=== PATIENT | female | born 1970 | race Caucasian/White ===

== ENCOUNTER → 2022-01-29 | Outpatient (CLI) | payer OTHER | LOC: M OUTALCOH 08:03 | PROVIDERS: ATTEND Psychiatry & Neurology Psychiatry | DX: Z02.89 Encounter for other administrative examinations (principal) ==

== ENCOUNTER → 2022-01-31 | Outpatient (CLI) | payer OTHER | LOC: M OUTALCOH 07:42 | PROVIDERS: ATTEND Psychiatry & Neurology Psychiatry | DX: Z02.89 Encounter for other administrative examinations (principal) ==

== ENCOUNTER 2022-02-07 10:57 | Outpatient (RCR) | payer OTHER | END 2022-02-10 | LOC: M OUTALCOH 10:57 | PROVIDERS: ATTEND Psychiatry & Neurology Psychiatry | DX: F10.20 Alcohol dependence, uncomplicated (principal); F15.20 Other stimulant dependence, uncomplicated; F17.200 Nicotine dependence, unspecified, uncomplicated ==

== ENCOUNTER 2022-04-28 23:09 | Emergency (ER) | payer OTHER ==
[~2022-04-28] VITALS: Ht 172.7 cm; Wt 67.7 kg
[2022-04-28 23:12] VITALS: BP 140/98
== END 2022-04-29 02:57 | disposition left against medical advice (07) ==
LOC: M ED 23:09
DX: Z53.21 Procedure and treatment not carried out due to patient leaving prior to being seen by health care provider (principal)

== ENCOUNTER → 2022-05-03 | Outpatient (CLI) | payer OTHER | LOC: M CLY 09:06 | PROVIDERS: ATTEND Family Medicine | DX: M25.551 Pain in right hip (principal) ==

== ENCOUNTER → 2022-05-03 | Outpatient (REF) | payer OTHER ==
[2022-05-03 11:53] LABS: HEMATOCRIT 38.4 % (36.0-47.0); HEMOGLOBIN 12.4 g/dl (12.0-15.5); MEAN CORPUSCULAR HEMOGLOBIN 33.2 pg (27.0-33.0); MEAN CORPUSCULAR HGB CONC 32.3 g/dl (32.0-36.5); MEAN CORPUSCULAR VOLUME 102.9 fl (80.0-96.0); PLATELET COUNT, AUTOMATED 239 10^3/uL (150-450); RED BLOOD COUNT 3.73 10^6/uL (4.00-5.40); WHITE BLOOD COUNT 3.5 10^3/uL (4.0-10.0)
[2022-05-03 12:46] LABS: ALT/SGPT 81 U/L (12-78); BILIRUBIN,TOTAL 0.2 MG/DL (0.2-1.0); BLOOD UREA NITROGEN 11 MG/DL (7-18); CALCIUM LEVEL 9.2 MG/DL (8.5-10.1); CARBON DIOXIDE LEVEL 27 MEQ/L (21-32); CHLORIDE LEVEL 106 MEQ/L (98-107); CREATININE FOR GFR 0.55 MG/DL (0.55-1.30); GLOMERULAR FILTRATION RATE > 60.0 (>51); GLUCOSE, FASTING 89 MG/DL (70-100); SODIUM LEVEL 139 MEQ/L (136-145); TOTAL PROTEIN 7.5 GM/DL (6.4-8.2)
[2022-05-03 13:08] LABS: VITAMIN B12 LEVEL 463 PG/ML (247-911)
[2022-05-03 13:48] LABS: HEPATITIS C VIRUS ABY INDEX < 0.0 INDEX (<0.8); HIV 1&2 SCREEN CENTAUR NEGATIVE (NEGATIVE)
[2022-05-04 08:09] LABS: FOLATE 4.7 ng/mL (>3.0)
== END ==
LOC: M SFHCPLAZ 09:01
PROVIDERS: ATTEND Family Medicine
DX: F10.20 Alcohol dependence, uncomplicated (principal); Z11.9 Encounter for screening for infectious and parasitic diseases, unspecified

== ENCOUNTER → 2022-05-17 | Outpatient (CLI) | payer OTHER | LOC: M WHC 08:24 | PROVIDERS: ATTEND Family Medicine | DX: F10.10 Alcohol abuse, uncomplicated (principal) ==

== ENCOUNTER → 2022-05-30 | Outpatient (REF) | payer OTHER | LOC: M SFHCPLAZ 13:09 | PROVIDERS: ATTEND Family Medicine | DX: Z53.9 Procedure and treatment not carried out, unspecified reason (principal) ==

== ENCOUNTER → 2022-07-05 | Outpatient (REF) | payer OTHER | LOC: M LAB REF 12:57 | PROVIDERS: ATTEND Nurse Practitioner Family | DX: R19.4 Change in bowel habit (principal); Z80.0 Family history of malignant neoplasm of digestive organs ==

== ENCOUNTER → 2022-07-11 | Outpatient (CLI) | payer OTHER ==
[~2022-07-11] MED LIST: ACAM0.05 PO; ALBU8.5H INH; CHOL100012 PO; FLUT1BLS4 INH; FOLI400T13 PO; GALZ50CA PO; LOPE1CAP5 PO; OMEP-173 PO; TAB-TAB3 PO; THIA100T22 PO; VITATAB73 PO
== END ==
LOC: M SOG 08:03
PROVIDERS: ATTEND Physician Assistant
DX: M25.531 Pain in right wrist (principal)

== ENCOUNTER → 2022-07-16 | Outpatient (CLI) | payer OTHER | LOC: M LABSMTC 10:44 | PROVIDERS: ATTEND Anesthesiology | DX: Z01.812 Encounter for preprocedural laboratory examination (principal); Z11.52 Encounter for screening for COVID-19 ==

== ENCOUNTER 2022-07-19 09:57 | Day surgery (SDC) | payer OTHER ==
[~2022-07-19] VITALS: Ht 170.2 cm; Wt 67.0 kg
[~2022-07-19 09:57] MED LIST changes: +NS 1,000 ML IV ONE
[2022-07-19] MEDS ORDERED: propofoL 200 MG/20 ML VIAL As Ordered ONE (11:39)
[2022-07-19] MEDS ORDERED: LIDOCAINE 2% 100MG/5ML SDV (FOR ANES.) As Ordered ONE (11:47)
[2022-07-19 12:26] VITALS: BP 160/73
== END 2022-07-19 12:40 | disposition home or self-care (01) ==
LOC: M OPP 09:57
PROVIDERS: ATTEND Internal Medicine Gastroenterology
DX: Z12.11 Encounter for screening for malignant neoplasm of colon (principal); K63.5 Polyp of colon; K29.50 Unspecified chronic gastritis without bleeding; K57.30 Diverticulosis of large intestine without perforation or abscess without bleeding; K64.8 Other hemorrhoids; K76.0 Fatty (change of) liver, not elsewhere classified; K21.9 Gastro-esophageal reflux disease without esophagitis; M19.90 Unspecified osteoarthritis, unspecified site; F41.9 Anxiety disorder, unspecified; F32.A Depression, unspecified; J45.909 Unspecified asthma, uncomplicated; F17.210 Nicotine dependence, cigarettes, uncomplicated; Z88.2 Allergy status to sulfonamides; Z79.899 Other long term (current) drug therapy; Z80.0 Family history of malignant neoplasm of digestive organs; Z80.3 Family history of malignant neoplasm of breast; Z80.41 Family history of malignant neoplasm of ovary

== ENCOUNTER → 2022-07-22 | Outpatient (CLI) | payer OTHER ==
[~2022-07-22] MED LIST changes: -NS 1,000 ML IV ONE
== END ==
LOC: M LABSMTC 11:01
PROVIDERS: ATTEND Anesthesiology
DX: Z01.812 Encounter for preprocedural laboratory examination (principal); Z20.822 Contact with and (suspected) exposure to COVID-19

== ENCOUNTER 2022-07-24 06:14 | Day surgery (SDC) | payer OTHER ==
[~2022-07-24] VITALS: Ht 171.4 cm; Wt 66.9 kg
[2022-07-24] MEDS ORDERED: propofoL 200 MG/20 ML VIAL As Ordered ONE (07:14)
[2022-07-24] MEDS ORDERED: MIDAZOLAM INJ 2MG/2ML VIAL As Ordered ONE (07:14)
[2022-07-24] MEDS ORDERED: ONDANSETRON 4MG 2ML VIAL As Ordered ONE (07:14)
[2022-07-24] MEDS ORDERED: fentaNYL 100 MCG/2 ML INJECTION As Ordered ONE (07:15)
[2022-07-24] MEDS ORDERED: KETOROLAC 60MG 2ML VIAL As Ordered ONE (07:16)
[2022-07-24] MEDS ORDERED: LIDOCAINE 2% 100MG/5ML SDV (FOR ANES.) As Ordered ONE (07:16)
== END 2022-07-24 12:40 | disposition home or self-care (01) ==
LOC: M SDC 06:14
PROVIDERS: ATTEND Orthopaedic Surgery Hand Surgery
DX: G56.01 Carpal tunnel syndrome, right upper limb (principal); Z53.09 Procedure and treatment not carried out because of other contraindication

== ENCOUNTER → 2022-07-31 | Outpatient (CLI) | payer OTHER | LOC: M LABSMTC 11:21 | PROVIDERS: ATTEND Anesthesiology | DX: Z01.812 Encounter for preprocedural laboratory examination (principal); Z20.822 Contact with and (suspected) exposure to COVID-19 ==

== ENCOUNTER 2022-08-05 06:08 | Day surgery (SDC) | payer OTHER ==
[~2022-08-05] VITALS: Ht 172.7 cm; Wt 68.4 kg
[2022-08-05] MEDS ORDERED: LR 1,000 ML IV SCH ×2 (06:20→08:25)
[2022-08-05] MEDS ORDERED: BUPIVACAINE HCL 0.25% 30ML VIAL As Ordered ONE (07:15)
[2022-08-05] MEDS ORDERED: BACITRACIN OINTMENT 30GM TUBE As Ordered ONE (07:15)
[2022-08-05] MEDS ORDERED: ONDANSETRON 4MG 2ML VIAL As Ordered ONE (07:45)
[2022-08-05] MEDS ORDERED: KETOROLAC 60MG 2ML VIAL As Ordered ONE ×2 (07:45→09:05)
[2022-08-05] MEDS ORDERED: METOCLOPRAMIDE INJ 10MG/2ML VIAL As Ordered ONE (07:45)
[2022-08-05] MEDS ORDERED: propofoL 200 MG/20 ML VIAL As Ordered ONE (07:45)
[2022-08-05] MEDS ORDERED: ACETAMINOPHEN 1000MG 100ML IV BAG As Ordered ONE (07:45)
[2022-08-05] MEDS ORDERED: LIDOCAINE 2% 100MG/5ML SDV (FOR ANES.) As Ordered ONE (07:45)
[2022-08-05] MEDS ORDERED: fentaNYL 100 MCG/2 ML INJECTION As Ordered ONE (07:45)
[2022-08-05] MEDS ORDERED: MIDAZOLAM INJ 2MG/2ML VIAL As Ordered ONE (07:45)
[2022-08-05] MEDS ORDERED: oxyCODONE 5MG TAB PO PRN (08:25)
[2022-08-05] MEDS ORDERED: ONDANSETRON 4MG 2ML VIAL IV PRN (08:25)
[2022-08-05 08:59] VITALS: BP 100/67
== END 2022-08-05 09:22 | disposition home or self-care (01) ==
LOC: M SDC 06:08
PROVIDERS: ATTEND Orthopaedic Surgery Hand Surgery
DX: G56.01 Carpal tunnel syndrome, right upper limb (principal); K57.92 Diverticulitis of intestine, part unspecified, without perforation or abscess without bleeding; K76.0 Fatty (change of) liver, not elsewhere classified; K21.9 Gastro-esophageal reflux disease without esophagitis; F17.210 Nicotine dependence, cigarettes, uncomplicated; F12.10 Cannabis abuse, uncomplicated; Z79.899 Other long term (current) drug therapy; F41.9 Anxiety disorder, unspecified; F32.A Depression, unspecified; Z88.2 Allergy status to sulfonamides
CPT/HCPCS: 29848; 93005; J1100; J2405

== ENCOUNTER → 2022-08-12 | Outpatient (CLI) | payer OTHER | LOC: M OUTALCOH 07:34 | PROVIDERS: ATTEND Psychiatry & Neurology Psychiatry | DX: F10.10 Alcohol abuse, uncomplicated (principal) ==

== ENCOUNTER 2022-08-23 09:59 | Outpatient (RCR) | payer OTHER | END 2022-09-10 | LOC: M OUTALCOH 09:59 | PROVIDERS: ATTEND Psychiatry & Neurology Psychiatry | DX: F15.20 Other stimulant dependence, uncomplicated (principal); F10.20 Alcohol dependence, uncomplicated; F12.10 Cannabis abuse, uncomplicated; Z72.0 Tobacco use ==

== ENCOUNTER → 2022-09-02 | Outpatient (CLI) | payer OTHER | LOC: M OUTALCOH 08:04 | PROVIDERS: ATTEND Psychiatry & Neurology Psychiatry | DX: F10.10 Alcohol abuse, uncomplicated (principal) ==

== ENCOUNTER → 2022-10-04 | Outpatient (CLI) | payer OTHER ==
[2022-10-04 17:31] LABS: APPEARANCE, URINE CLEAR (CLEAR); BACTERIA, URINE AUTO NEGATIVE (NEGATIVE); BILIRUBIN, URINE AUTO NEGATIVE (NEGATIVE); BLOOD, URINE BLOOD NEGATIVE (NEGATIVE); COLOR, URINE STRAW (YELLOW); GLUCOSE, URINE (UA) AUTO NEGATIVE (NEGATIVE); KETONE, URINE AUTO NEGATIVE (NEGATIVE); LEUKOCYTE ESTERASE, URINE AUTO 2+ (NEGATIVE); NITRITE, URINE AUTO NEGATIVE (NEGATIVE); PROTEIN, URINE AUTO NEGATIVE (NEGATIVE); RBC, URINE AUTO 1 /HPF (0-3); SPECIFIC GRAVITY URINE AUTO 1.006 (1.002-1.035); SQUAMOUS EPITHELIAL CELL UR AU 0 /HPF (0-6); UROBILINOGEN, URINE AUTO 0.2 mg/dL (0.0-2.0); WBC, URINE AUTO 14 /HPF (0-3)
[2022-10-04 17:44] LABS: HEMATOCRIT 40.2 % (36.0-47.0); HEMOGLOBIN 12.9 g/dl (12.0-15.5); MEAN CORPUSCULAR HEMOGLOBIN 31.8 pg (27.0-33.0); MEAN CORPUSCULAR HGB CONC 32.1 g/dl (32.0-36.5); PLATELET COUNT, AUTOMATED 334 10^3/uL (150-450); RED BLOOD COUNT 4.06 10^6/uL (4.00-5.40); WHITE BLOOD COUNT 7.5 10^3/uL (4.0-10.0)
[2022-10-04 18:12] LABS: BLOOD UREA NITROGEN 15 MG/DL (9-23); CALCIUM LEVEL 9.3 MG/DL (8.5-10.1); CARBON DIOXIDE LEVEL 30 MMOL/L (20-31); CHLORIDE LEVEL 103 MMOL/L (98-107); CREATININE FOR GFR 0.59 MG/DL (0.55-1.30); GLOMERULAR FILTRATION RATE > 60.0 (>51); GLUCOSE, FASTING 93 MG/DL (60-100); PHOSPHORUS LEVEL 3.7 MG/DL (2.5-4.9); POTASSIUM SERUM 4.7 MMOL/L (3.5-5.1); SODIUM LEVEL 140 MMOL/L (136-145)
[2022-10-04 19:07] LABS: HEPATITIS B SURFACE ANTIGEN NEGATIVE (NEGATIVE)
[2022-10-04 19:28] LABS: HEPATITIS C VIRUS ABY INDEX 0.1 INDEX (<0.8)
[2022-10-04 19:29] LABS: HEPATITIS B CORE ANTIBODY IGM NEGATIVE (NEGATIVE)
== END ==
LOC: M PLALAB 14:06
PROVIDERS: ATTEND Physician Assistant
DX: Z02.2 Encounter for examination for admission to residential institution (principal)

== ENCOUNTER → 2022-10-16 | Outpatient (CLI) | payer OTHER ==
[2022-10-16 13:17] LABS: BASO % 0.5 % (0.0-1.0); EOS # 0.2 10^3/uL (0.0-0.5); EOS % 4.1 % (0.0-3.0); HEMATOCRIT 41.3 % (36.0-47.0); HEMOGLOBIN 13.5 g/dl (12.0-15.5); LYMPH # 1.6 10^3/uL (1.5-5.0); LYMPH % 35.9 % (24.0-44.0); MEAN CORPUSCULAR HEMOGLOBIN 31.4 pg (27.0-33.0); MEAN CORPUSCULAR HGB CONC 32.7 g/dl (32.0-36.5); MONO # 0.4 10^3/uL (0.0-0.8); MONO % 9.5 % (2.0-8.0); NEUTROPHILS # 2.2 10^3/uL (1.5-8.5); NEUTROPHILS % 49.8 % (36.0-66.0); PLATELET COUNT, AUTOMATED 309 10^3/uL (150-450); WHITE BLOOD COUNT 4.4 10^3/uL (4.0-10.0)
[2022-10-16 13:28] LABS: INR 0.86; PROTHROMBIN TIME 11.9 SECONDS (12.5-14.5)
[2022-10-16 13:29] LABS: PARTIAL THROMBOPLASTIN TIME 30.8 SECONDS (24.8-34.2)
[2022-10-16 13:47] LABS: ALBUMIN 3.9 G/DL (3.2-5.2); ALKALINE PHOSPHATASE 107 U/L (46-116); ALT/SGPT 23 U/L (7.0-40); AST/SGOT 19 U/L (<34); BILIRUBIN,DIRECT < 0.1 MG/DL (<0.4); BILIRUBIN,TOTAL 0.3 MG/DL (0.3-1.2); BLOOD UREA NITROGEN 11 MG/DL (9-23); CALCIUM LEVEL 9.3 MG/DL (8.5-10.1); CARBON DIOXIDE LEVEL 30 MMOL/L (20-31); CHLORIDE LEVEL 104 MMOL/L (98-107); CREATININE FOR GFR 0.62 MG/DL (0.55-1.30); GLOMERULAR FILTRATION RATE > 60.0 (>51); GLUCOSE, FASTING 81 MG/DL (60-100); POTASSIUM SERUM 4.3 MMOL/L (3.5-5.1); SODIUM LEVEL 139 MMOL/L (136-145); TOTAL PROTEIN 6.7 G/DL (5.7-8.2)
== END ==
LOC: M PLALAB 11:14
PROVIDERS: ATTEND Internal Medicine Gastroenterology
DX: R11.10 Vomiting, unspecified (principal)

== ENCOUNTER → 2022-10-21 | Outpatient (CLI) | payer OTHER | LOC: M LAB 11:32 | PROVIDERS: ATTEND Internal Medicine Gastroenterology | DX: R11.10 Vomiting, unspecified (principal) ==

== ENCOUNTER → 2022-10-31 | Outpatient (CLI) | payer OTHER | LOC: M OUTALCOH 09:36 | PROVIDERS: ATTEND Psychiatry & Neurology Psychiatry | DX: F10.10 Alcohol abuse, uncomplicated (principal) ==

== ENCOUNTER 2022-11-08 12:42 | Outpatient (RCR) | payer OTHER | END 2022-11-10 | LOC: M OUTALCOH 12:42 | PROVIDERS: ATTEND Psychiatry & Neurology Psychiatry | DX: F10.20 Alcohol dependence, uncomplicated (principal); F15.20 Other stimulant dependence, uncomplicated; F12.10 Cannabis abuse, uncomplicated; Z72.0 Tobacco use ==

== ENCOUNTER → 2022-11-13 | Outpatient (CLI) | payer OTHER | LOC: M PLAIMG 09:06 → M PLALAB 09:06 | PROVIDERS: ATTEND Family Medicine | DX: M54.50 Low back pain, unspecified (principal); M51.36 Other intervertebral disc degeneration, lumbar region; M41.86 Other forms of scoliosis, lumbar region; M47.816 Spondylosis without myelopathy or radiculopathy, lumbar region ==

== ENCOUNTER 2022-11-25 11:00 | Outpatient (RCR) | payer OTHER | END 2022-12-11 | LOC: M OUTALCOH 11:00 | PROVIDERS: ATTEND Psychiatry & Neurology Psychiatry | DX: F10.20 Alcohol dependence, uncomplicated (principal); F15.20 Other stimulant dependence, uncomplicated; F12.10 Cannabis abuse, uncomplicated; Z72.0 Tobacco use ==

== ENCOUNTER 2023-01-02 09:53 | Outpatient (RCR) | payer OTHER | END 2023-01-10 | LOC: M OUTALCOH 09:53 | PROVIDERS: ATTEND Psychiatry & Neurology Psychiatry | DX: F10.20 Alcohol dependence, uncomplicated (principal); F15.20 Other stimulant dependence, uncomplicated; F12.10 Cannabis abuse, uncomplicated; Z72.0 Tobacco use ==

== ENCOUNTER 2023-02-06 09:00 | Outpatient (RCR) | payer OTHER | END 2023-02-10 | LOC: M OUTALCOH 09:00 | PROVIDERS: ATTEND Psychiatry & Neurology Psychiatry | DX: F10.20 Alcohol dependence, uncomplicated (principal); F15.20 Other stimulant dependence, uncomplicated; Z72.0 Tobacco use; F12.10 Cannabis abuse, uncomplicated ==

== ENCOUNTER → 2023-03-13 | Outpatient (RCR) | payer OTHER | LOC: M OUTALCOH 02-13 12:35 | PROVIDERS: ATTEND Psychiatry & Neurology Psychiatry | DX: F10.20 Alcohol dependence, uncomplicated (principal); F15.20 Other stimulant dependence, uncomplicated; F12.10 Cannabis abuse, uncomplicated; Z72.0 Tobacco use ==

== ENCOUNTER 2023-06-10 10:00 | Outpatient (RCR) | payer OTHER | END 2023-06-12 | LOC: M OUTALCOH 10:00 | PROVIDERS: ATTEND Psychiatry & Neurology Psychiatry | DX: F10.20 Alcohol dependence, uncomplicated (principal); F15.20 Other stimulant dependence, uncomplicated; F12.10 Cannabis abuse, uncomplicated; Z72.0 Tobacco use ==

== ENCOUNTER → 2023-06-25 | Outpatient (REF) | LOC: M PLAIMG 14:33 | PROVIDERS: ATTEND Internal Medicine | DX: R52 Pain, unspecified (principal) ==

== ENCOUNTER 2023-07-01 09:59 | Outpatient (RCR) | payer OTHER | END 2023-07-13 | LOC: M OUTALCOH 09:59 | PROVIDERS: ATTEND Psychiatry & Neurology Psychiatry | DX: F10.20 Alcohol dependence, uncomplicated (principal); F15.20 Other stimulant dependence, uncomplicated; F12.10 Cannabis abuse, uncomplicated; Z72.0 Tobacco use ==

== ENCOUNTER → 2023-07-01 | Outpatient (CLI) | payer OTHER ==
[2023-07-01 13:11] LABS: HEMOGLOBIN 13.1 g/dl (12.0-15.5); MEAN CORPUSCULAR HEMOGLOBIN 31.5 pg (27.0-33.0); MEAN CORPUSCULAR HGB CONC 32.8 g/dl (32.0-36.5); MEAN CORPUSCULAR VOLUME 96.2 fl (80.0-96.0); PLATELET COUNT, AUTOMATED 314 10^3/uL (150-450); RED BLOOD COUNT 4.16 10^6/uL (4.00-5.40); WHITE BLOOD COUNT 3.5 10^3/uL (4.0-10.0)
[2023-07-01 13:24] LABS: INR 0.92; PROTHROMBIN TIME 12.1 SECONDS (12.5-14.5)
[2023-07-01 13:42] LABS: ALBUMIN 3.9 G/DL (3.2-5.2); ALKALINE PHOSPHATASE 92 U/L (46-116); ALT/SGPT 13 U/L (7.0-40); AST/SGOT 16 U/L (<34); BILIRUBIN,TOTAL 0.8 MG/DL (0.3-1.2); BLOOD UREA NITROGEN 14 MG/DL (9-23); CALCIUM LEVEL 9.6 MG/DL (8.5-10.1); CARBON DIOXIDE LEVEL 28 MMOL/L (20-31); CHLORIDE LEVEL 105 MMOL/L (98-107); CREATININE FOR GFR 0.73 MG/DL (0.55-1.30); FERRITIN 304.6 NG/ML (7.3-270.7); GLOMERULAR FILTRATION RATE > 60.0 (>51); GLUCOSE, FASTING 99 MG/DL (60-100); SODIUM LEVEL 139 MMOL/L (136-145); TOTAL PROTEIN 6.8 G/DL (5.7-8.2)
[2023-07-01 13:44] LABS: FOLATE 22.83 NG/ML (>5.4)
== END ==
LOC: M PLALAB 09:47
PROVIDERS: ATTEND Family Medicine
DX: F10.20 Alcohol dependence, uncomplicated (principal); K70.9 Alcoholic liver disease, unspecified

== ENCOUNTER 2023-07-22 10:32 | Outpatient (RCR) | payer OTHER | END 2023-08-13 | LOC: M OUTALCOH 10:32 | PROVIDERS: ATTEND Psychiatry & Neurology Psychiatry | DX: F10.20 Alcohol dependence, uncomplicated (principal); F15.20 Other stimulant dependence, uncomplicated; F12.10 Cannabis abuse, uncomplicated; Z72.0 Tobacco use ==

== ENCOUNTER → 2023-09-19 | Outpatient (CLI) | payer OTHER | LOC: M RAD 13:38 | PROVIDERS: ATTEND Family Medicine | DX: Z12.2 Encounter for screening for malignant neoplasm of respiratory organs (principal) ==

== ENCOUNTER → 2024-05-10 | Outpatient (CLI) | payer OTHER ==
[2024-05-10 08:26] LABS: HEMOGLOBIN 12.7 g/dl (12.0-15.5); MEAN CORPUSCULAR HEMOGLOBIN 32.4 pg (27.0-33.0); MEAN CORPUSCULAR HGB CONC 31.8 g/dl (32.0-36.5); PLATELET COUNT, AUTOMATED 280 10^3/uL (150-450); RED BLOOD COUNT 3.92 10^6/uL (4.00-5.40)
[2024-05-10 08:37] LABS: INR 0.87; PROTHROMBIN TIME 12.1 SECONDS (12.5-14.5)
[2024-05-10 09:00] LABS: ALBUMIN 3.8 G/DL (3.2-5.2); ALKALINE PHOSPHATASE 133 U/L (35-104); ALT/SGPT 62 U/L (7.0-40); AST/SGOT 92 U/L (<34); BILIRUBIN,TOTAL 0.4 MG/DL (0.3-1.2); BLOOD UREA NITROGEN 12 MG/DL (9-23); CALCIUM LEVEL 9.4 MG/DL (8.5-10.1); CARBON DIOXIDE LEVEL 29 MMOL/L (20-31); CHLORIDE LEVEL 108 MMOL/L (98-107); CREATININE FOR GFR 0.54 MG/DL (0.55-1.30); GLOMERULAR FILTRATION RATE > 60.0 (>51); GLUCOSE, FASTING 90 MG/DL (60-100); POTASSIUM SERUM 4.5 MMOL/L (3.5-5.1); SODIUM LEVEL 141 MMOL/L (136-145); TOTAL PROTEIN 7.1 G/DL (5.7-8.2)
== END ==
LOC: M LAB 07:10
PROVIDERS: ATTEND Family Medicine
DX: F10.20 Alcohol dependence, uncomplicated (principal); K70.9 Alcoholic liver disease, unspecified

== ENCOUNTER → 2024-05-10 | Outpatient (CLI) | payer OTHER | LOC: M RAD 07:08 | PROVIDERS: ATTEND Nurse Practitioner Family | DX: K76.89 Other specified diseases of liver (principal); K76.0 Fatty (change of) liver, not elsewhere classified ==

== ENCOUNTER → 2024-10-14 | Outpatient (REF) | LOC: M PLAIMG 13:24 | PROVIDERS: ATTEND Internal Medicine | DX: M51.370 Other intervertebral disc degeneration, lumbosacral region with discogenic back pain only (principal) ==

== ENCOUNTER → 2024-10-28 | Outpatient (CLI) | payer OTHER | LOC: M WHC 10:22 | PROVIDERS: ATTEND Family Medicine | DX: Z12.31 Encounter for screening mammogram for malignant neoplasm of breast (principal) ==

== ENCOUNTER → 2024-11-10 | Outpatient (CLI) | payer OTHER ==
[~2024-11-10] MED LIST changes: -GALZ50CA PO; +ZINC50CA4 PO
[2024-11-10 14:16] LABS: HEMATOCRIT 38.7 % (36.0-47.0); HEMOGLOBIN 14.1 g/dl (12.0-15.5); MEAN CORPUSCULAR HEMOGLOBIN 35.4 pg (27.0-33.0); MEAN CORPUSCULAR HGB CONC 36.4 g/dl (32.0-36.5); MEAN CORPUSCULAR VOLUME 97.2 fl (80.0-96.0); PLATELET COUNT, AUTOMATED 268 10^3/uL (150-450); RED BLOOD COUNT 3.98 10^6/uL (4.00-5.40); WHITE BLOOD COUNT 4.5 10^3/uL (4.0-10.0)
[2024-11-10 14:28] LABS: INR 0.77; PROTHROMBIN TIME 11.1 SECONDS (12.5-14.5)
[2024-11-10 15:01] LABS: ALBUMIN 3.9 G/DL (3.2-5.2); ALKALINE PHOSPHATASE 122 U/L (35-104); ALT/SGPT 28 U/L (7.0-40); AST/SGOT 44 U/L (<34); BILIRUBIN,TOTAL < 0.2 MG/DL (0.3-1.2); BLOOD UREA NITROGEN 8 MG/DL (9-23); CALCIUM LEVEL 8.7 MG/DL (8.5-10.1); CARBON DIOXIDE LEVEL 28 MMOL/L (20-31); CHLORIDE LEVEL 96 MMOL/L (98-107); CHOLESTEROL LEVEL 945 MG/DL (<200); CHOLESTEROL RISK RATIO 23.68 (<5); CREATININE FOR GFR 0.54 MG/DL (0.55-1.30); GLOMERULAR FILTRATION RATE > 90.0 (>51); GLUCOSE, FASTING 93 MG/DL (60-100); HDL CHOLESTEROL 39.9 MG/DL (>40); NON-HDL-C 905.1 MG/DL; POTASSIUM SERUM 4.1 MMOL/L (3.5-5.1); SODIUM LEVEL 131 MMOL/L (136-145); TRIGLYCERIDES LEVEL 4534 MG/DL (<150)
== END ==
LOC: M RAD 13:25
PROVIDERS: ATTEND Family Medicine
DX: Z12.2 Encounter for screening for malignant neoplasm of respiratory organs (principal); Z87.891 Personal history of nicotine dependence

== ENCOUNTER → 2025-02-10 | Outpatient (CLI) | payer OTHER ==
[2025-02-10 09:07] LABS: IRON (FE) 154 UG/DL (50-170)
[2025-02-10 09:09] LABS: PERCENT SATURATION 46.0 % (13.2-45.0)
[2025-02-10 09:24] LABS: ALT/SGPT 72 U/L (7.0-40); AST/SGOT 133 U/L (<34)
[2025-02-10 09:50] LABS: HEPATITIS C VIRUS ABY INDEX < 0.02 INDEX (<0.8)
[2025-02-14 13:17] LABS: CERULOPLASMIN 32.0 mg/dL (14-48)
[2025-02-14 16:42] LABS: ANTI-MITOCHONDRIAL ANTIBODY NEGATIVE (NEGATIVE)
== END ==
LOC: M RAD 07:20
PROVIDERS: ATTEND Physician Assistant Medical
DX: R16.0 Hepatomegaly, not elsewhere classified (principal); K70.0 Alcoholic fatty liver

== ENCOUNTER → 2025-03-01 | Outpatient (CLI) | payer OTHER ==
[~2025-03-01] MED LIST changes: +E-Z-GAS II EFFERVESCENT PACKET (SODIUM BICARB./CITRIC ACID/SIMETHICONE) As Ordered ONE; +E-Z-HD 98% w/w 340 GM SUSP BTL As Ordered ONE; +E-Z-PAQUE 96% w/w SUSP 176 GM BTL As Ordered ONE
== END ==
LOC: M RAD 08:36
PROVIDERS: ATTEND Physician Assistant Medical
DX: R13.10 Dysphagia, unspecified (principal); K21.9 Gastro-esophageal reflux disease without esophagitis

== ENCOUNTER 2025-06-23 09:03 | Day surgery (SDC) | payer OTHER ==
[~2025-06-23] VITALS: Ht 170.2 cm; Wt 68.0 kg
[~2025-06-23 09:03] MED LIST changes: +BENA25CA4 PO; +CREO3600 PO; -E-Z-GAS II EFFERVESCENT PACKET (SODIUM BICARB./CITRIC ACID/SIMETHICONE) As Ordered ONE; -E-Z-HD 98% w/w 340 GM SUSP BTL As Ordered ONE; -E-Z-PAQUE 96% w/w SUSP 176 GM BTL As Ordered ONE
[2025-06-23] MEDS ORDERED: IPRATROPIUM 0.5 MG/ALBUTEROL 2.5 MG INH SOL UD 3 ML NEB ONE (09:50)
[2025-06-23] MEDS ORDERED: LIDOCAINE 2% 100 MG/5 ML SDV (FOR ANES.) As Ordered ONE (10:39)
[2025-06-23 11:25] VITALS: TEMP 98.6
[2025-06-23 11:40] VITALS: BP 116/75; O2SAT 98
== END 2025-06-23 11:48 | disposition home or self-care (01) ==
LOC: M OPP 09:03
PROVIDERS: ATTEND Internal Medicine Gastroenterology
DX: R13.14 Dysphagia, pharyngoesophageal phase (principal); R13.12 Dysphagia, oropharyngeal phase; J45.909 Unspecified asthma, uncomplicated; F17.210 Nicotine dependence, cigarettes, uncomplicated; Z88.2 Allergy status to sulfonamides; Z79.51 Long term (current) use of inhaled steroids; Z79.899 Other long term (current) drug therapy
CPT/HCPCS: 43239; 43249; 88305; J3010